=== PATIENT | male | born 1945 | race Hispanic/Latino ===

== ENCOUNTER 2017-01-29 13:52 | Outpatient (CLI) | payer OTHER ==
--- NOTE | 2017-01-30 08:31 | Cat Scan Report ---
CT NECK WITHOUT CONTRAST History: Multinodular goiter. Findings: No comparison at this facility. The thyroid gland is atrophic with the lobes measuring just over 2 cm in length. The gland is slightly lobulated but there is no suspicious thyroid mass. No cervical adenopathy. The salivary glands, laryngeal structures and prevertebral soft tissues are within normal limits. The bony structures are within normal limits. Minimal degenerative changes are noted. There is opacification of the left maxillary sinus which appears chronic. The remaining sinuses and mastoid air cells are clear. The imaged brain is unremarkable. Lung apices are clear. Impression: Atrophic thyroid gland. Chronic left maxillary sinusitis.
== END 2017-01-29 13:53 | disposition home or self-care (01) ==
LOC: CT 13:52
PROVIDERS: ATTEND Internal Medicine
DX: E04.2 Nontoxic multinodular goiter (principal); E03.4 Atrophy of thyroid (acquired); J32.0 Chronic maxillary sinusitis; I10 Essential (primary) hypertension; E03.9 Hypothyroidism, unspecified
CPT/HCPCS: 70490

== ENCOUNTER 2017-03-16 09:27 | Day surgery (SDC) | payer OTHER ==
[2017-03-16 10:17] VITALS: BP 113/70
--- NOTE | 2017-03-16 13:22 | Ultrasound Report ---
Thyroid ultrasound: History of thyroid ablation with supplemental thyroxine. Clinical history of multinodular goiter. Imaging of the thyroid gland demonstrates the right lobe to measure 0.7 x 1.3 x 2.5 cm and the left measures 0.8 x 0.9 x 2.2 cm. The left lobe is echogenically homogeneous and unremarkable. The right lobe contains a circumscribed echogenic nodule measuring 11 mm. No internal flow on vascular imaging. On the right side of the isthmus there is a nodular area which may represent thyroid tissue which is homogeneous except for an echolucent center and it measures 12 mm in maximum dimension. There is mild internal flow but most of the flow is at the periphery. Impressions: 1. Hypotrophic thyroid gland consistent with ablation. 2. Discrete echogenic nodule right thyroid lobe. A biopsy was not performed due to the juxta position with the right carotid artery and lack of clear approach path. Recommendation: Indeterminate right thyroid nodule. Most echogenic nodules are not malignant. Additional evaluation might be considered using nuclear medicine or follow nodule with additional ultrasound in 6 months.
== END 2017-03-16 09:28 | disposition home or self-care (01) ==
LOC: CATHLABREC 09:27
PROVIDERS: ATTEND Internal Medicine
DX: E04.1 Nontoxic single thyroid nodule (principal)
CPT/HCPCS: 76536